=== PATIENT | male | born 1990 | race Caucasian/White ===

== ENCOUNTER 2018-03-26 15:27 | Emergency (ER) | payer OTHER ==
--- NOTE | 2018-03-26 15:33 | ED Physician Documentation ---
General Adult - HISTORIAN Historian: patient - HPI Stated Complaint: left knee pain after fall at work Chief Complaint: Lower Extremity Injury Onset: hours (1) Timing: still present Further Comments: yes (He states he was coming down off a ladder and hit his knee on a metal pole that was sticking out. he states his pain is4/10 on scale and it is aching. He has not tried any Ice or OTC meds before arrival.) Last known Well Code/Unknown Code: Unknown - ROS CONST: no problems - PAST HX Past History: none Surgeries/Procedures: other (ortho and dental ) Immunizations: UTD Allergies/Adverse Reactions: Allergies Allergy/AdvReac Type Severity Reaction Status Date / Time No Known Allergies Allergy Verified 03/26/18 15:40 Home Medications: Ambulatory Orders Medication Instructions Recorded NK 03/26/18 - SOCIAL HX Smoking History: non-smoker Drug Use: none - FAMILY HX Family History: No - REVIEWED ASSESSMENTS Nursing Assessment Reviewed: Yes Vitals Reviewed: Yes ED Results Lab/Radiology - Radiology Radiology Impressions: Left knee History: Status post fall at work AP, lateral and sunrise views of the left knee demonstrate no osseous abnormalities. There are no degenerative findings. No joint effusion is seen. Impression: No osseous abnormality. Electronically signed on Mar 26, 2018 4:00:49 PM CLOTHING PATTERNMAKER by: Carlee Kim General Adult Physical Exam - PHYSICAL EXAM GENERAL APPEARANCE: no distress EENT: eye inspection normal, ENT inspection normal NECK: normal inspection RESPIRATORY: no resp distress, chest non-tender, breath sounds normal CVS: reg rate & rhythm, heart sounds normal ABDOMEN: soft BACK: normal inspection SKIN: warm/dry, normal color EXTREMITIES: other (left knee with redness and lateral patella swelling with increased pain with extension or palpation. Pulses + and sensation + cap refill + ) NEURO: oriented X3 Discharge Clincal Impression: Left knee pain Qualifiers: Chronicity: acute Qualified Code(s): M25.562 - Pain in left knee Referrals: Primary Doctor,No [Primary Care Provider] - 2 Days Comments: 1. Ice to knee 2. OTC meds as directed for pain 3. Follow up with PCP in 2-4 days 4. Return to ER for any concerns Condition: Stable Disposition: 01 HOME, SELF-CARE Decision to Admit: NO Date of Decison to Admit: 03/26/18 Decision Time: 16:03
[2018-03-26 15:40] VITALS: BP 132/73
--- NOTE | 2018-03-26 16:02 | Diagnostic Imaging Report ---
MARIA ELENA SCHROEDER [facility] [place] [facility] [id number] [facility] [address] [place], [place]. [address] Report Submission Date: Mar 26, 2018 4:00:49 PM SCREW MACHINE SET UP OPERATOR TOOL Patient Study Name: JOSE RITCHIE Date: Mar 26, 2018 3:38:21 PM SCREW MACHINE SET UP OPERATOR TOOL Modality Type: DX Gender: M Description: LOWER EXTREMITY : 89 Institution: [facility] Physician: MARIA ELENA SCHROEDER Left knee History: Status post fall at work AP, lateral and sunrise views of the left knee demonstrate no osseous abnormalities. There are no degenerative findings. No joint effusion is seen. Impression: No osseous abnormality. Electronically signed on Mar 26, 2018 4:00:49 PM SCREW MACHINE SET UP OPERATOR TOOL by: Carlee HARE
== END 2018-03-26 16:05 | disposition home or self-care (01) ==
LOC: ED 15:27
DX: M25.562 Pain in left knee (principal)
CPT/HCPCS: 73562; 99282; 99283